=== PATIENT | male | born 1970 | race Two or more races ===

== ENCOUNTER 2018-04-05 15:40 | Emergency (ER) | payer SELFPAY ==
[~2018-04-05] VITALS: Ht 185.4 cm; Wt 97.5 kg
--- NOTE | 2018-04-05 15:59 | PHYS DOC ---
Past Medical History Past Medical History: No Pertinent History Past Surgical History: No Surgical History Alcohol Use: Occasionally Drug Use: None Adult General Chief Complaint Chief Complaint: CHEST PAIN HPI HPI Patient is a 47 year old male with history of acid reflex, HTN who presents today complaining of 10 out of 10 frontal chest pain radiating to his back. Patient describes the pain as a bubbling sensation that begins from his epigastric abdomen and shoots into his chest into his back. Patient states symptoms began this morning. He states he tried his acid reflex medications with no relief. Patient states he had similar symptoms before and was informed he has acid reflex. He has history of smoking too. Patient denies anything exacerbating the pain. PCP Dr. Jessie Sutherland Review of Systems Review of Systems Constitutional: Denies fever or chills [] Eyes: Denies change in visual acuity, redness, or eye pain [] HENT: Denies nasal congestion or sore throat [] Respiratory: Denies cough or shortness of breath [] Cardiovascular: Reports chest pain GI: Reports epigastric abdominal pain, denies nausea, vomiting, bloody stools or diarrhea [] : Denies dysuria or hematuria [] Musculoskeletal: Denies back pain or joint pain [] Integument: Denies rash or skin lesions [] Neurologic: Denies headache, focal weakness or sensory changes [] All other systems were reviewed and found to be within normal limits, except as documented in this note. Current Medications Current Medications Current Medications Medications (Trade) Dose Ordered Sig/Charan Start Time Stop Time Status Last Admin Dose Admin Aspirin (Keyur Aspirin) 325 mg 1X ONCE 04/05/18 16:00 04/05/18 16:01 DC 04/05/18 16:28 325 MG Multi-Ingredient Mouthwash/Gargle (Gi Cocktail) 20 ml 1X ONCE 04/05/18 16:00 04/05/18 16:01 DC 04/05/18 16:28 20 ML Pantoprazole Sodium (PROTONIX VIAL for IV PUSH) 40 mg 1X ONCE 04/05/18 16:00 04/05/18 16:01 DC 04/05/18 16:28 40 MG Allergies Allergies Allergies Coded Allergies Type Severity Reaction Last Updated Verified No Known Drug Allergies 04/29/15 No Physical Exam Physical Exam Constitutional: Well developed, well nourished, no acute distress, non-toxic appearance. [] HENT: Normocephalic, atraumatic, bilateral external ears normal, oropharynx moist, no oral exudates, nose normal. [] Eyes: PERRLA, EOMI, conjunctiva normal, no discharge. [] Neck: Normal range of motion, no tenderness, supple, no stridor. [] Cardiovascular:Heart rate regular rhythm, no murmur [] Lungs & Thorax: Bilateral breath sounds clear to auscultation [] Abdomen: Bowel sounds normal, soft, no tenderness, no masses, no pulsatile masses. [] Skin: Warm, dry, no erythema, no rash. [] Back: No tenderness, no CVA tenderness. [] Extremities: No tenderness, no cyanosis, no clubbing, ROM intact, no edema. [] Neurologic: Alert and oriented X 3, normal motor function, normal sensory function, no focal deficits noted. [] Psychologic: Affect normal, judgement normal, mood normal. [] Current Patient Data Vital Signs Vital Signs Date Time Temp Pulse Resp B/P (MAP) Pulse Ox O2 Delivery O2 Flow Rate FiO2 04/05/18 17:17 71 16 135/85 (102) 99 Room Air 04/05/18 15:40 98.5 98.5 Lab Values Laboratory Tests Test 04/05/18 16:23 04/05/18 16:45 White Blood Count 11.4 x10^3/uL (4.0-11.0) H Red Blood Count 5.35 x10^6/uL (4.30-5.70) Hemoglobin 17.1 g/dL (13.0-17.5) Hematocrit 48.0 % (39.0-53.0) Mean Corpuscular Volume 90 fL (79-100) Mean Corpuscular Hemoglobin 32 pg (25-35) Mean Corpuscular Hemoglobin Concent 36 g/dL (31-37) Red Cell Distribution Width 12.9 % (11.5-14.5) Platelet Count 230 x10^3/uL (140-400) Neutrophils (%) (Auto) 59 % (31-73) Lymphocytes (%) (Auto) 28 % (24-48) Monocytes (%) (Auto) 10 % (0-9) H Eosinophils (%) (Auto) 2 % (0-3) Basophils (%) (Auto) 1 % (0-3) Neutrophils # (Auto) 6.8 x10^3uL (1.8-7.7) Lymphocytes # (Auto) 3.2 x10^3/uL (1.0-4.8) Monocytes # (Auto) 1.1 x10^3/uL (0.0-1.1) Eosinophils # (Auto) 0.3 x10^3/uL (0.0-0.7) Basophils # (Auto) 0.1 x10^3/uL (0.0-0.2) D-Dimer (Jennifer) < 0.27 ug/mlFEU Sodium Level 133 mmol/L (136-145) L Potassium Level 3.4 mmol/L (3.5-5.1) L Chloride Level 99 mmol/L (98-107) Carbon Dioxide Level 28 mmol/L (21-32) Anion Gap 6 (6-14) Blood Urea Nitrogen 16 mg/dL (8-26) Creatinine 1.0 mg/dL (0.7-1.3) Estimated GFR (Cockcroft-Gault) 80.8 BUN/Creatinine Ratio 16 (6-20) Glucose Level 124 mg/dL (70-99) H Calcium Level 9.8 mg/dL (8.5-10.1) Magnesium Level 2.5 mg/dL (1.8-2.4) H Total Bilirubin 0.9 mg/dL (0.2-1.0) Aspartate Amino Transferase (AST) 24 U/L (15-37) Alanine Aminotransferase (ALT) 101 U/L (16-63) H Alkaline Phosphatase 71 U/L (46-116) Creatine Kinase 54 U/L (39-308) Creatine Kinase MB (Mass) 0.7 ng/mL (0.0-3.6) Creatine Kinase MB Relative Index % (0-4) Troponin I Quantitative < 0.017 ng/mL (0.000-0.055) UT-Rpa-Q-Type Natriuretic Peptide 8 pg/mL (0-124) Total Protein 7.6 g/dL (6.4-8.2) Albumin 4.3 g/dL (3.4-5.0) Albumin/Globulin Ratio 1.3 (1.0-1.7) Lipase 166 U/L (73-393) Thyroid Stimulating Hormone (TSH) 1.158 uIU/mL (0.358-3.74) Urine Collection Type Void Urine Color Yellow Urine Clarity Clear Urine pH 6.5 Urine Specific [place] 1.020 Urine Protein Negative mg/dL (NEG-TRACE) Urine Glucose (UA) Negative mg/dL (NEG) Urine Ketones (Stick) Negative mg/dL (NEG) Urine Blood Negative (NEG) Urine Nitrite Negative (NEG) Urine Bilirubin Negative (NEG) Urine Urobilinogen Dipstick 1.0 mg/dL (0.2 mg/dL) Urine Leukocyte Esterase Negative (NEG) Urine RBC 0 /HPF (0-2) Urine WBC 0 /HPF (0-4) Urine Squamous Epithelial Cells Few /LPF Urine Bacteria 0 /HPF (0-FEW) Urine Mucus Mod /LPF Urine Opiates Screen Neg (NEG) Urine Methadone Screen Neg (NEG) Urine Barbiturates Neg (NEG) Urine Phencyclidine Screen Neg (NEG) Urine Amphetamine/Methamphetamine Neg (NEG) Urine Benzodiazepines Screen Neg (NEG) Urine Cocaine Screen Neg (NEG) Urine Cannabinoids Screen Neg (NEG) Urine Ethyl Alcohol Neg (NEG) Laboratory Tests 04/05/18 16:23 Laboratory Tests 04/05/18 16:23 EKG EKG 15:53 interpreted by sinus rhythm heart rate 79 no STEMI Radiology/Procedures Radiology/Procedures []PROCEDURE: PORTABLE CHEST 1V Single view of the chest. 04/05/2018 3:55 PM Indication: PT STATES HAVING CHEST PAIN AND TROUBLE BREATHING, STARTED TODAY. Comparison: None Findings: There is no focal consolidation. There is no pleural effusion or pneumothorax. The cardiomediastinal silhouette and pulmonary vasculature are within normal limits. No acute osseous abnormalities are seen. Impression: No evidence of acute cardiopulmonary process. Electronically signed by: Gavin Garcia MD (04/05/2018 4:12 PM) [facility] DICTATED and SIGNED BY: GAVIN GARCIA MD DATE: 04/05/18 1610 Course & Med Decision Making Course & Med Decision Making Pertinent Labs and Imaging studies reviewed. (See chart for details) This is a 47-year-old male patient with history of acid reflex, smoking and hypertension who presents today complaining of frontal chest pain that begins from his epigastric region as a bubbling sensation and shoots into his back. Patient has history OF acid reflex, has had similar chest pain before and was diagnosed with acid reflex. EKG is negative for any acute findings, chest x-ray is negative, labs are negative for any acute findings including a normal d-dimer. Patient was given GI cocktail in the ED, Protonix. On reevaluation he states his pain is gone. Spoke to patient about acid reflex. We discussed dietary requirements for acid reflex including avoiding fatty foods, spicy foods, patient states he eats a lot of this type of foods. Also discussed the need to avoid eating late at night , he states he usually has his dinner 10 PM and goes to bed right away. Encouraged him to continue taking Protonix every day, exercising, avoiding smoking. He is to follow-up with his own doctor next week. Dragon Disclaimer Dragon Disclaimer This electronic medical record was generated, in whole or in part, using a voice recognition dictation system. Departure Departure Impression: Primary Impression: Acid reflux Additional Impression: Smoking addiction Disposition: 01 HOME, SELF-CARE Condition: STABLE Referrals: NO PCP (PCP) follow up in 1 week Patient Instructions: Diet for Gastroesophageal Reflux Disease, Adult, Gastroesophageal Reflux Disease, Adult, Smoking Cessation Additional Instructions: You were listed in the emergency room and noted to have symptoms consistent with acid reflex. Please take a Pepcid every day. Please do not hit greasy foods , spicy foods, heavy meals especially before bedtime. Consider smoking cessation. Try to exercise. Problem Qualifiers Primary Impression: Acid reflux Esophagitis presence: esophagitis presence not specified Qualified Codes: K21.9 - Gastro-esophageal reflux disease without esophagitis BLANKA WATTS APRN Apr 05, 2018 15:59
[2018-04-05] MEDS ORDERED: PANTOPRAZOLE IV PUSH 40 MG VIAL. IVP ONE (16:00)
[2018-04-05] MEDS ORDERED: ASPIRIN 325 MG TABLET PO ONE (16:00)
[2018-04-05] MEDS ORDERED: LIDO:MAALOX 1:1 20 ML SINGLE DOSE. SWSW ONE (16:00)
--- NOTE | 2018-04-05 16:13 | EKG ---
[facility] [address] [place] [address] Test Date: 2018-04-05 Test Time: 15:48:51 Pat Name: ZEYAD DENIS Department: Room: Gender: M [employer] Machine: : [id number] Requested By: BLANKA WATTS Order Number: [id number] Reading MD: Ananda Dangelo MD Measurements Intervals [place] Rate: 79 P: 0 SD: 168 QRS: 5 QRSD: 96 T: 18 QT: 364 QTc: 423 Interpretive Statements SINUS RHYTHM Electronically Signed On 04-05-2018 16:57:00 CDT by Ananda Dangelo MD
--- NOTE | 2018-04-05 16:15 | RAD ---
Single view of the chest. 04/05/2018 3:55 PM Indication: PT STATES HAVING CHEST PAIN AND TROUBLE BREATHING, STARTED TODAY. Comparison: None Findings: There is no focal consolidation. There is no pleural effusion or pneumothorax. The cardiomediastinal silhouette and pulmonary vasculature are within normal limits. No acute osseous abnormalities are seen. Impression: No evidence of acute cardiopulmonary process. Electronically signed by: Gavin Mari MD (04/05/2018 4:12 PM) [facility]
[2018-04-05 16:34] LABS: BASO # 0.1 x10^3/uL (0.0-0.2); BASO % 1 % (0-3); EOS # 0.3 x10^3/uL (0.0-0.7); EOS % 2 % (0-3); HEMOGLOBIN 17.1 g/dL (13.0-17.5); LYMPH # 3.2 x10^3/uL (1.0-4.8); LYMPH % 28 % (24-48); MEAN CORPUSCULAR HEMOGLOBIN 32 pg (25-35); MEAN CORPUSCULAR HGB CONC 36 g/dL (31-37); MEAN CORPUSCULAR VOLUME 90 fL (79-100); MONO # 1.1 x10^3/uL (0.0-1.1); MONO % 10 % (0-9); NEUT # 6.8 x10^3uL (1.8-7.7); NEUT % 59 % (31-73); PLATELET COUNT 230 x10^3/uL (140-400); RED BLOOD COUNT 5.35 x10^6/uL (4.30-5.70); RED CELL DISTRIBUTION WIDTH 12.9 % (11.5-14.5); WHITE BLOOD COUNT 11.4 x10^3/uL (4.0-11.0)
[2018-04-05 16:54] LABS: CALCIUM 9.8 mg/dL (8.5-10.1); GFR 80.8; POTASSIUM 3.4 mmol/L (3.5-5.1)
[2018-04-05 16:57] LABS: ALBUMIN 4.3 g/dL (3.4-5.0); ALBUMIN/GLOBULIN RATIO 1.3 (1.0-1.7); MAGNESIUM 2.5 mg/dL (1.8-2.4); TOTAL BILIRUBIN 0.9 mg/dL (0.2-1.0); TOTAL PROTEIN 7.6 g/dL (6.4-8.2)
[2018-04-05 17:00] LABS: BILIRUBIN,URINE NEGATIVE (NEG); CLARITY,URINE CLEAR; COLOR,URINE YELLOW; NITRITE,URINE NEGATIVE (NEG); PH,URINE 6.5; PROTEIN,URINE NEGATIVE (NEG-TRACE)
[2018-04-05 17:12] LABS: BACTERIA,URINE 0 /HPF (0-FEW); RBC,URINE 0 /HPF (0-2); SQUAMOUS EPITHELIAL CELL,UR FEW /LPF; WBC,URINE 0 /HPF (0-4)
[2018-04-05 17:13] LABS: BARBITURATES NEG (NEG); BENZODIAZEPINES NEG (NEG); CANNABINOIDS NEG (NEG); COCAINE NEG (NEG); METHADONE NEG (NEG); OPIATES NEG (NEG); PHENCYCLIDINE NEG (NEG)
[2018-04-05 17:16] LABS: AMPHETAMINE/METHAMPHETAMINE NEG (NEG)
[2018-04-05 17:46] VITALS: BP 130/87
[2018-04-05 17:46] LABS: CREATINE KINASE 54 U/L (39-308)
--- NOTE | 2018-04-05 18:09 | RAD ---
Indication:epigastric pain TECHNIQUE: Grayscale, color Doppler and spectral waveform is of the abdomen obtained. COMPARISON:None FINDINGS:Pancreas is not visualized due to overlying bowel gas. IVC is patent. No aortic aneurysm. Main portal vein is patent. Liver measures 17 cm in longest dimension and is normal in size with diffuse increased echogenicity without apparent focal lesion. No gallstones, pericholecystic fluid or gallbladder wall thickening. CBD measures 4 mm in diameter and is within normal limits. Gallbladder fossa areas of fat sparing seen. Right kidney measures 13 cm in length without hydronephrosis. Spleen measures 13 cm in length and is normal in size. Left kidney measures 12 cm in length without hydronephrosis. IMPRESSION: 1. No cholelithiasis or sonographic evidence of acute cholecystitis. 2. Hepatic steatosis. Electronically signed by: Anthony Zavala DO (04/05/2018 6:06 PM) [facility]
== END 2018-04-05 18:05 | disposition home or self-care (01) ==
LOC: ER 15:40
DX: K21.9 Gastro-esophageal reflux disease without esophagitis (principal); R07.89 Other chest pain; F17.200 Nicotine dependence, unspecified, uncomplicated; I10 Essential (primary) hypertension
CPT/HCPCS: 36415; 71045; 76700; 80053; 80307; 81001; 82553; 83690; 83735; 83880; 84443; 84484; 85025; 85379; 93005; 96374; 99285; C9113; G0479